=== PATIENT | male | born 1995 | race African-American/Black ===

== ENCOUNTER 2017-12-02 05:21 | Inpatient (IN) | payer OTHER ==
[2017-12-02] MEDS ORDERED: NACL 0.9% 1000 ML 1,000 ML IV ONE ×3 (05:36→11:55)
[2017-12-02 05:50] LABS: Basophils % (Auto) 0.2 % (0.0-1.8); Eosinophils # (Auto) 0.1 K/mm3 (0.0-0.4); Eosinophils % (Auto) 0.7 % (0.0-4.3); Hematocrit 48.4 % (35.5-45.6); Hemoglobin 16.1 gm/dl (11.8-15.2); Lymphocytes # (Auto) 2.9 K/mm3 (1.2-5.4); Lymphocytes % (Auto) 19.2 % (13.4-35.0); Mean Corpuscular HGB Conc 33 % (32-34); Mean Corpuscular Hemoglobin 28 pg (28-32); Mean Corpuscular Volume 83 fl (84-94); Monocytes # (Auto) 0.8 K/mm3 (0.0-0.8); Monocytes % (Auto) 5.2 % (0.0-7.3); Platelet Count 251 K/mm3 (140-440); Red Blood Count 5.81 M/mm3 (3.65-5.03); Red Cell Distribution Width 13.3 % (13.2-15.2)
[2017-12-02 06:10] LABS: Alanine Aminotransferase 15 units/L (7-56); BUN/Creatinine Ratio 18; Blood Urea Nitrogen 16 mg/dL (9-20); Calcium 9.7 mg/dL (8.4-10.2); Hemolysis Index 8
[2017-12-02 07:07] LABS: Bilirubin,Urine NEG (Negative); Blood,Urine NEG (Negative); Color,Urine Yellow (Yellow); Mucus,Urine 3+ /HPF; Protein,Urine <15 mg/dL mg/dL (Negative); Urobilinogen,Urine < 2.0 mg/dL (<2.0)
[2017-12-02] MEDS ORDERED: TORADOL IV ONE (07:13)
--- NOTE | 2017-12-02 08:31 | Cat Scan Report ---
CT ABDOMEN PELVIS WITH CONTRAST: HISTORY: Right sided abdominal pain. COMPARISON: none. TECHNIQUE: Helical CT in 1.25mm intervals following IV contrast. Sagittal and coronal reconstructions. FINDINGS: Lung bases: Normal. Liver: Normal. Biliary system: Normal. Pancreas: Normal. Spleen: Normal. Kidneys/ureters/bladder: Normal. Adrenal glands: Normal. Aorta: Normal. Intestines: Normal. Appendix: The appendix is mildly dilated measuring 9 mm in diameter. Mild mucosal enhancement and mild surrounding fat stranding is identified. No abscess or free air. Pelvic viscera: Normal. Ascites: None. Adenopathy: None. Musculoskeletal: Normal. IMPRESSION: Acute appendicitis. These findings were discussed with Dr. Melchor in the emergency department at 0825 hours.
--- NOTE | 2017-12-02 08:58 | Emergency Department Report ---
ED Abdominal Pain HPI - General Chief Complaint: Abdominal Pain Stated Complaint: STOMACH PAIN Time Seen by Provider: 12/02/17 07:09 Source: patient Mode of arrival: Ambulatory Limitations: No Limitations - History of Present Illness Initial Comments: 22-year-old male with no significant past medical or surgical history presents to the hospital complaining of right lower quadrant abdominal pain and started 3 hours prior to arrival last night. Pain is a constant stabbing pain worse with movement and palpation. Patient denies nausea, vomiting, fever, or diarrhea. Last bowel movement was one day ago. Severity scale (0 -10): 9 - Related Data Allergies Allergy/AdvReac Type Severity Reaction Status Date / Time No Known Allergies Allergy Verified 12/02/17 07:11 ED Review of Systems ROS: Stated complaint: STOMACH PAIN Other details as noted in HPI ED Past Medical Hx - Past Medical History Previous Medical History?: No - Surgical History Past Surgical History?: No - Social History Smoking Status: Never Smoker Substance Use Type: None ED Physical Exam - General Limitations: No Limitations ED Course Vital Signs 12/02/17 12/02/17 12/02/17 05:30 06:43 06:45 Temperature 97.5 F L Pulse Rate 76 Respiratory 20 Rate Blood Pressure 104/49 111/61 Blood Pressure [Left] O2 Sat by Pulse 100 98 100 Oximetry 12/02/17 12/02/17 12/02/17 06:54 07:00 07:15 Temperature 98.4 F Pulse Rate 78 Respiratory 18 Rate Blood Pressure 106/63 106/63 Blood Pressure 111/61 [Left] O2 Sat by Pulse 100 100 100 Oximetry 12/02/17 12/02/17 12/02/17 07:31 07:45 08:20 Temperature Pulse Rate Respiratory 16 Rate Blood Pressure 106/63 106/63 Blood Pressure [Left] O2 Sat by Pulse 99 100 Oximetry 12/02/17 12/02/17 12/02/17 08:29 08:30 08:35 Temperature 99.0 F Pulse Rate 85 Respiratory 16 Rate Blood Pressure 106/63 109/58 Blood Pressure 100/58 [Left] O2 Sat by Pulse 99 99 99 Oximetry - Consultations Consultation #1: 12/02/17 08:[address] smith with [facility], will speak to surgeon and check beds for status 12/02/17 09:36 No beds available, rec pt to be admitted here Consultation #2: 12/02/17 10:04 Dr Galo contacted and informed. request hospitalist to admit. ED Medical Decision Making - Lab Data Result diagrams: 12/02/17 05:35 12/02/17 05:35 Lab Results 12/02/17 12/02/17 12/02/17 Range/Units 05:35 05:35 06:35 WBC 15.2 H (4.5-11.0) K/mm3 RBC 5.81 H (3.65-5.03) M/mm3 Hgb 16.1 H (11.8-15.2) gm/dl Hct 48.4 H (35.5-45.6) % MCV 83 L (84-94) fl MCH 28 (28-32) pg MCHC 33 (32-34) % RDW 13.3 (13.2-15.2) % Plt Count 251 (140-440) K/mm3 Lymph % (Auto) 19.2 (13.4-35.0) % Towns % (Auto) 5.2 (0.0-7.3) % Eos % (Auto) 0.7 (0.0-4.3) % Baso % (Auto) 0.2 (0.0-1.8) % Lymph # 2.9 (1.2-5.4) K/mm3 Towns # 0.8 (0.0-0.8) K/mm3 Eos # 0.1 (0.0-0.4) K/mm3 Baso # 0.0 (0.0-0.1) K/mm3 Seg Neutrophils % 74.7 H (40.0-70.0) % Seg Neutrophils # 11.4 H (1.8-7.7) K/mm3 Sodium 143 (137-145) mmol/L Potassium 3.8 (3.6-5.0) mmol/L Chloride 102.4 (98-107) mmol/L Carbon Dioxide 26 (22-30) mmol/L Anion Gap 18 mmol/L BUN 16 (9-20) mg/dL Creatinine 0.9 (0.8-1.5) mg/dL Estimated GFR > 60 ml/min BUN/Creatinine Ratio 18 % Glucose 106 H (75-100) mg/dL Calcium 9.7 (8.4-10.2) mg/dL Total Bilirubin 0.30 (0.1-1.2) mg/dL AST 16 (5-40) units/L ALT 15 (7-56) units/L Alkaline Phosphatase 128 (35-129) units/L Total Protein 7.9 (6.3-8.2) g/dL Albumin 5.0 (3.9-5) g/dL Albumin/Globulin Ratio 1.7 % Urine Color Yellow (Yellow) Urine Turbidity Clear (Clear) Urine pH 5.0 (5.0-7.0) Ur Specific [place] 1.023 (1.003-1.030) Urine Protein <15 mg/dl (Negative) mg/dL Urine Glucose (UA) Neg (Negative) mg/dL Urine Ketones Neg (Negative) mg/dL Urine Blood Neg (Negative) Urine Nitrite Neg (Negative) Urine Bilirubin Neg (Negative) Urine Urobilinogen < 2.0 (<2.0) mg/dL Ur Leukocyte Esterase Neg (Negative) Urine WBC (Auto) 1.0 (0.0-6.0) /HPF Urine RBC (Auto) 1.0 (0.0-6.0) /HPF U Epithel Cells (Auto) < 1.0 (0-13.0) /HPF Urine Mucus 3+ /HPF - Radiology Data Radiology results: report reviewed CT ABDOMEN PELVIS WITH CONTRAST: HISTORY: Right sided abdominal pain. COMPARISON: none. TECHNIQUE: Helical CT in 1.25mm intervals following IV contrast. Sagittal and coronal reconstructions. FINDINGS: Lung bases: Normal. Liver: Normal. Biliary system: Normal. Pancreas: Normal. Spleen: Normal. Kidneys/ureters/bladder: Normal. Adrenal glands: Normal. Aorta: Normal. Intestines: Normal. Appendix: The appendix is mildly dilated measuring 9 mm in diameter. Mild mucosal enhancement and mild surrounding fat stranding is identified. No abscess or free air. Pelvic viscera: Normal. Ascites: None. Adenopathy: None. Musculoskeletal: Normal. IMPRESSION: Acute appendicitis. - Medical Decision Making Patient has acute appendicitis Patient is a [facility] patient however, no beds available and therefore patient was approved for admission here Case discussed with Dr. Galo general surgeon applications engineer Patient given Zosyn, Toradol, NS, Morphine, zofran and nothing by mouth orders in the ED - Differential Diagnosis appendicitis, constipation, renal colic Critical Care Time: No Critical care attestation.: If time is entered above; I have spent that time in minutes in the direct care of this critically ill patient, excluding procedure time. ED Disposition Clinical Impression: Acute appendicitis Disposition: DC-09 OP ADMIT IP TO THIS HOSP Is pt being admited?: Yes Condition: Stable Time of Disposition: 09:39 (Dr Oconnor contacted at 10:05)
[2017-12-02] MEDS ORDERED: ZOSYN/NS 4.5GM/100ML 4.5 GM/100 ML VIAL IV SCH ×2 (09:00→12:00)
[2017-12-02] MEDS ORDERED: MORPHINE IV ONE (09:45)
[2017-12-02] MEDS ORDERED: ZOFRAN IV ONE (09:46)
[2017-12-02] MEDS ORDERED: MORPHINE IV PRN (10:36)
[2017-12-02] MEDS ORDERED: SODIUM CHLORIDE FLUSH SYRINGE 10 ML IV PRN (10:36)
[2017-12-02] MEDS ORDERED: TYLENOL PO PRN (10:36)
[2017-12-02] MEDS ORDERED: ZOFRAN IV PRN (10:36)
--- NOTE | 2017-12-02 10:38 | History and Physical Report ---
History of Present Illness Date of examination: 12/02/17 Date of admission: 12/02/17 Chief complaint: Appendicitis. History of present illness: Patient 22-year-old male with no significant past medical history no medication presented to the hospital with complaint of sudden onset of right lower quadrant abdominal pain 10/10 in intensity at the onset and improving, that started the night before admission. On arrival to the ED patient was diagnosed with Acute appendicitis. Patient reports nausea but no associated vomiting or diarrhea. . Past History Past Medical History: No medical history Past Surgical History: No surgical history Social history: no significant social history, lives with family, full code Family history: no significant family history Medications and Allergies Allergies Allergy/AdvReac Type Severity Reaction Status Date / Time No Known Allergies Allergy Verified 12/02/17 07:11 Active Meds: Active Medications Piperacillin Sod/Tazobactam Sod (Zosyn/Ns 4.5gm/100ml) 4.5 gm in 100 mls @ 200 mls/hr IV ONCE KRISTAL Last Admin: 12/02/17 10:20 Dose: 200 mls/hr Review of Systems All systems: negative Gastrointestinal: abdominal pain, nausea Exam - Physical Exam Narrative exam: VITAL SIGNS: Reviewed. GENERAL: The patient appeared well nourished and normally developed. Vital signs as documented. HEAD: No signs of head trauma. EYES: Pupils are equal. Extraocular motions intact. EARS: Hearing grossly intact. MOUTH: Oropharynx is normal. NECK: No adenopathy, no JVD. CHEST: Chest with clear breath sounds bilaterally. No wheezes, rales, or rhonchi. CARDIAC: Regular rate and rhythm. S1 and S2, without murmurs, gallops, or rubs. VASCULAR: No Edema. Peripheral pulses normal and equal in all extremities. ABDOMEN: Soft, RUQ tenderness. No sign of distention. No rebound or guarding, and no masses palpated. Bowel Sounds normal. MUSCULOSKELETAL: Good range of motion of all major joints. Extremities without clubbing, cyanosis or edema. NEUROLOGIC EXAM: Alert and oriented x 3. No focal sensory or strength deficits. Speech normal. Follows commands. PSYCHIATRIC: Mood normal. SKIN: No rash or lesions. - Constitutional Vitals: Temp Pulse Resp BP Pulse Ox 99.0 F 85 16 100/58 99 12/02/17 08:35 12/02/17 08:35 12/02/17 08:35 12/02/17 08:35 12/02/17 08:35 Results - Labs CBC & Chem 7: 12/02/17 05:35 12/02/17 05:35 Labs: Laboratory Last Values WBC 15.2 K/mm3 (4.5-11.0) H 12/02/17 05:35 RBC 5.81 M/mm3 (3.65-5.03) H 12/02/17 05:35 Hgb 16.1 gm/dl (11.8-15.2) H 12/02/17 05:35 Hct 48.4 % (35.5-45.6) H 12/02/17 05:35 MCV 83 fl (84-94) L 12/02/17 05:35 MCH 28 pg (28-32) 12/02/17 05:35 MCHC 33 % (32-34) 12/02/17 05:35 RDW 13.3 % (13.2-15.2) 12/02/17 05:35 Plt Count 251 K/mm3 (140-440) 12/02/17 05:35 Lymph % (Auto) 19.2 % (13.4-35.0) 12/02/17 05:35 [place] % (Auto) 5.2 % (0.0-7.3) 12/02/17 05:35 Eos % (Auto) 0.7 % (0.0-4.3) 12/02/17 05:35 Baso % (Auto) 0.2 % (0.0-1.8) 12/02/17 05:35 Lymph # 2.9 K/mm3 (1.2-5.4) 12/02/17 05:35 [place] # 0.8 K/mm3 (0.0-0.8) 12/02/17 05:35 Eos # 0.1 K/mm3 (0.0-0.4) 12/02/17 05:35 Baso # 0.0 K/mm3 (0.0-0.1) 12/02/17 05:35 Seg Neutrophils % 74.7 % (40.0-70.0) H 12/02/17 05:35 Seg Neutrophils # 11.4 K/mm3 (1.8-7.7) H 12/02/17 05:35 Sodium 143 mmol/L (137-145) 12/02/17 05:35 Potassium 3.8 mmol/L (3.6-5.0) 12/02/17 05:35 Chloride 102.4 mmol/L (98-107) 12/02/17 05:35 Carbon Dioxide 26 mmol/L (22-30) 12/02/17 05:35 Anion Gap 18 mmol/L 12/02/17 05:35 BUN 16 mg/dL (9-20) 12/02/17 05:35 Creatinine 0.9 mg/dL (0.8-1.5) 12/02/17 05:35 Estimated GFR > 60 ml/min 12/02/17 05:35 BUN/Creatinine Ratio 18 % 12/02/17 05:35 Glucose 106 mg/dL (75-100) H 12/02/17 05:35 Calcium 9.7 mg/dL (8.4-10.2) 12/02/17 05:35 Total Bilirubin 0.30 mg/dL (0.1-1.2) 12/02/17 05:35 AST 16 units/L (5-40) 12/02/17 05:35 ALT 15 units/L (7-56) 12/02/17 05:35 Alkaline Phosphatase 128 units/L (35-129) 12/02/17 05:35 Total Protein 7.9 g/dL (6.3-8.2) 12/02/17 05:35 Albumin 5.0 g/dL (3.9-5) 12/02/17 05:35 Albumin/Globulin Ratio 1.7 % 12/02/17 05:35 Urine Color Yellow (Yellow) 12/02/17 06:35 Urine Turbidity Clear (Clear) 12/02/17 06:35 Urine pH 5.0 (5.0-7.0) 12/02/17 06:35 Ur Specific [place] 1.023 (1.003-1.030) 12/02/17 06:35 Urine Protein <15 mg/dl mg/dL (Negative) 12/02/17 06:35 Urine Glucose (UA) Neg mg/dL (Negative) 12/02/17 06:35 Urine Ketones Neg mg/dL (Negative) 12/02/17 06:35 Urine Blood Neg (Negative) 12/02/17 06:35 Urine Nitrite Neg (Negative) 12/02/17 06:35 Urine Bilirubin Neg (Negative) 12/02/17 06:35 Urine Urobilinogen < 2.0 mg/dL (<2.0) 12/02/17 06:35 Ur Leukocyte Esterase Neg (Negative) 12/02/17 06:35 Urine WBC (Auto) 1.0 /HPF (0.0-6.0) 12/02/17 06:35 Urine RBC (Auto) 1.0 /HPF (0.0-6.0) 12/02/17 06:35 U Epithel Cells (Auto) < 1.0 /HPF (0-13.0) 12/02/17 06:35 Urine Mucus 3+ /HPF 12/02/17 06:35 - Imaging and Cardiology CT scan - abdomen: image reviewed (acute appendicitis) Assessment and Plan Assessment and plan: Patient 22-year-old male with no significant past medical history no medication presented to the hospital with complaint of sudden onset of right lower quadrant abdominal pain 10/10 in intensity at the onset and improving, that started the night before admission. On arrival to the ED patient was diagnosed with Acute appendicitis. Patient reports nausea but no associated vomiting or diarrhea. Acute appendicitis Abdominal peritoneal irritation secondary to appendicitis SIRS due to non infectious etiology with organ dysfunction Leukocytosis secondary to inflammation Plan Admit to surgical unit Surgery already consulted Plan for appendectomy Pain control Supportive care Plan discussed with patient and family. dvt/gi Prophy Advance Directives: Yes Plan of care discussed with patient/family: Yes
--- NOTE | 2017-12-02 12:04 | Consultation ---
History of Present Illness Consult date: 12/02/17 Reason for consult: abdominal pain Requesting physician: KENNETH CROUCH Chief complaint: RLQ abdominal pain - History of present illness History of present illness: 22yo healthy male presents with acute onset of RLQ abdominal pain since last night. Never had pain like this. No F/C/N/V. No Diarrhea. Pain has gotten worse. Past History Past Medical History: No medical history Past Surgical History: No surgical history Social history: single. denies: smoking, alcohol abuse Family history: no significant family history Medications and Allergies Allergies Allergy/AdvReac Type Severity Reaction Status Date / Time No Known Allergies Allergy Verified 12/02/17 07:11 Active Meds: Active Medications Acetaminophen (Tylenol) 650 mg PO Q4H PRN PRN Reason: Pain MILD(1-3)/Fever >100.5/MARTE Piperacillin Sod/Tazobactam Sod (Zosyn/Ns 4.5gm/100ml) 4.5 gm in 100 mls @ 200 mls/hr IV ONCE KRISTAL Last Admin: 12/02/17 10:20 Dose: 200 mls/hr Dextrose/Sodium Chloride (D5/0.45ns) 1,000 mls @ 125 mls/hr IV DIRECT KRISTAL Sodium Chloride (Nacl 0.9% 1000 Ml) 1,000 mls @ 999 mls/hr IV BOLUS ONE Stop: 12/02/17 12:55 Piperacillin Sod/Tazobactam Sod (Zosyn/Ns 4.5gm/100ml) 4.5 gm in 100 mls @ 200 mls/hr IV PREOP KRISTAL; Protocol Morphine Sulfate (Morphine) 2 mg IV Q4H PRN PRN Reason: Pain, Moderate (4-6) Ondansetron HCl (Zofran) 4 mg IV Q8H PRN PRN Reason: Nausea And Vomiting Sodium Chloride (Sodium Chloride Flush Syringe 10 Ml) 10 ml IV BID KRISTAL Sodium Chloride (Sodium Chloride Flush Syringe 10 Ml) 10 ml IV PRN PRN PRN Reason: LINE FLUSH Review of Systems - Constitutional no fever, no chills, no sweats, no chronic pain - Cardiovascular no chest pain, no palpitations, no lightheadedness, no shortness of breath - Respiratory no cough, no shortness of breath - Gastrointestinal abdominal pain, dyspepsia/bloating, no nausea, no vomiting, no diarrhea, no constipation, no change in bowel habits, no hematemesis, no BRBPR, no melena, no hematochezia, no indigestion - Genitourinary no dysuria - Muskuloskeletal no low back pain - Integumentary no rash, no sores, no wounds - Neurological no weakness, no headaches Exam Vital Signs Temp Pulse Resp BP Pulse Ox 97.5 F L 76 20 104/49 100 12/02/17 05:30 12/02/17 05:30 12/02/17 05:30 12/02/17 05:30 12/02/17 05:30 - General physical appearance Positive: well developed, well nourished, no distress, no pain, other (healthy appearing young man) - Eyes Positive: normal occular movement - Respiratory Positive: normal expansion, normal respiratory effort, clear to auscultation - Cardiovascular Rhythm: regular - Abdomen Abdomen: Present: soft, tender (focally in RLQ. No Rovsing's sign. No pelvic shake tenderness. ), bowel sounds hypoactive, distended (mild). Absent: guarding, rigid, wound - Integumentary no rash, no growths, no abnormal pigmentation - Neurologic Neurologic: alert and oriented to time, place and person, motor strength and sensation are grossly intact - Psychiatric Psychiatric: appropriate mood/affect, intact judgment & insight Results - Labs 12/02/17 05:35 12/02/17 05:35 Abnormal lab results 12/02/17 12/02/17 Range/Units 05:35 05:35 WBC 15.2 H (4.5-11.0) K/mm3 RBC 5.81 H (3.65-5.03) M/mm3 Hgb 16.1 H (11.8-15.2) gm/dl Hct 48.4 H (35.5-45.6) % MCV 83 L (84-94) fl Seg Neutrophils % 74.7 H (40.0-70.0) % Seg Neutrophils # 11.4 H (1.8-7.7) K/mm3 Glucose 106 H (75-100) mg/dL Diabetes panel 12/02/17 Range/Units 05:35 Sodium 143 (137-145) mmol/L Potassium 3.8 (3.6-5.0) mmol/L Chloride 102.4 (98-107) mmol/L Carbon Dioxide 26 (22-30) mmol/L BUN 16 (9-20) mg/dL Creatinine 0.9 (0.8-1.5) mg/dL Glucose 106 H (75-100) mg/dL Calcium 9.7 (8.4-10.2) mg/dL AST 16 (5-40) units/L ALT 15 (7-56) units/L Alkaline Phosphatase 128 (35-129) units/L Total Protein 7.9 (6.3-8.2) g/dL Albumin 5.0 (3.9-5) g/dL Calcium panel 12/02/17 Range/Units 05:35 Calcium 9.7 (8.4-10.2) mg/dL Albumin 5.0 (3.9-5) g/dL Pituitary panel 12/02/17 Range/Units 05:35 Sodium 143 (137-145) mmol/L Potassium 3.8 (3.6-5.0) mmol/L Chloride 102.4 (98-107) mmol/L Carbon Dioxide 26 (22-30) mmol/L BUN 16 (9-20) mg/dL Creatinine 0.9 (0.8-1.5) mg/dL Glucose 106 H (75-100) mg/dL Calcium 9.7 (8.4-10.2) mg/dL Adrenal panel 12/02/17 Range/Units 05:35 Sodium 143 (137-145) mmol/L Potassium 3.8 (3.6-5.0) mmol/L Chloride 102.4 (98-107) mmol/L Carbon Dioxide 26 (22-30) mmol/L BUN 16 (9-20) mg/dL Creatinine 0.9 (0.8-1.5) mg/dL Glucose 106 H (75-100) mg/dL Calcium 9.7 (8.4-10.2) mg/dL Total Bilirubin 0.30 (0.1-1.2) mg/dL AST 16 (5-40) units/L ALT 15 (7-56) units/L Alkaline Phosphatase 128 (35-129) units/L Total Protein 7.9 (6.3-8.2) g/dL Albumin 5.0 (3.9-5) g/dL - Imaging CT scan - abdomen: report reviewed, image reviewed CT scan - pelvis: report reviewed, image reviewed Assessment and Plan - Patient Problems (1) Acute appendicitis Current Visit: Yes Status: Acute Qualifiers: Acute appendicitis type: with localized peritonitis Qualified Code(s): K35.3 - Acute appendicitis with localized peritonitis Plan to address problem: Pt stable. Appears to have hx/PE/labs/RAD studies consistent with acute appendicitis. Pt unable to transfer to [facility] due to lack of beds. Pt recommended to have lap appy. Procedure, risks, benefits, alternatives (Abx only ) discussed with patient. Pt wishes to have surgery. all questions answered. Consent obtained. To OR today for lap appy. Time=45min
[2017-12-02] MEDS ORDERED: TORADOL IV PRN (12:20)
[2017-12-02] MEDS ORDERED: PERCOCET 5/325 PO PRN (12:20)
[2017-12-02] MEDS ORDERED: DILAUDID IV PRN (12:20)
--- NOTE | 2017-12-02 12:23 | Anesthesia Day of Surgery ---
Anesthesia Day of Surgery - Day of Surgery Patient Examined: Yes Patient H&P Reviewed: Yes Patient is NPO: Yes
--- NOTE | 2017-12-02 12:23 | Anesthesia Consultation ---
Anesthesia Consult and Med Hx Date of service: 12/02/17 - Airway Anesthetic Teeth Evaluation: Good ROM Head & Neck: Adequate Mental/Hyoid Distance: Adequate Mallampati Class: Class II Intubation Access Assessment: Probably Good - Pulmonary Exam CTA: Yes - Cardiac Exam Cardiac Exam: RRR - Pre-Operative Health Status ASA Pre-Surgery Classification: ASA1 Proposed Anesthetic Plan: General - Pulmonary Hx Smoking: No - Cardiovascular System Hx Hypertension: No - Central Nervous System Hx Back Pain: No - Gastrointestinal Hx Gastroesophageal Reflux Disease: No - Endocrine Hx Renal Disease: No
[2017-12-02] MEDS ORDERED: DILAUDID ONE (12:35)
[2017-12-02] MEDS ORDERED: ZEMURON IV ONE (12:35)
[2017-12-02] MEDS ORDERED: DIPRIVAN 10 MG/ML IV ONE (12:35)
[2017-12-02] MEDS ORDERED: XYLOCAINE MPF 2% ONE (12:35)
[2017-12-02] MEDS ORDERED: XYLOCAINE 1% 20 mL ONE (12:39)
[2017-12-02] MEDS ORDERED: MARCAINE 0.25% INFILTRATI ONE (12:40)
[2017-12-02] MEDS ORDERED: MARCAINE 0.5% 30 ML INFILTRATI ONE (12:46)
[2017-12-02] MEDS ORDERED: VERSED IV NR (13:00)
[2017-12-02] MEDS ORDERED: PEPCID IV NR (13:00)
[2017-12-02] MEDS ORDERED: DECADRON ONE (13:18)
[2017-12-02] MEDS ORDERED: ROBINUL ONE (13:18)
[2017-12-02] MEDS ORDERED: ZOFRAN ONE (13:18)
[2017-12-02] MEDS ORDERED: BLOXIVERZ ONE (13:18)
[2017-12-02] MEDS ORDERED: XYLOCAINE 1% 20 mL INFILTRATI ONE ×2 (13:24)
[2017-12-02] MEDS ORDERED: NACL 0.9% IR ONE (13:24)
[2017-12-02] MEDS ORDERED: MARCAINE 0.5% INFILTRATI ONE (13:24)
[2017-12-02] MEDS ORDERED: TORADOL ONE (13:54)
[2017-12-02] MEDS ORDERED: NORCO 5/325 PO PRN (14:10)
--- NOTE | 2017-12-02 14:12 | Post Operative Note ---
Date of procedure: 12/02/17 (Dictation:[id number]) Pre-op diagnosis: acute appendicitis Post-op diagnosis: same Findings: inflammed retrocecal appendix Procedure: lap appy Anesthesia: GETA Surgeon: ALYSIA MARKS Estimated blood loss: minimal Pathology: list (appendix) Specimen disposition: to lab Condition: stable Disposition: PACU
[2017-12-02] MEDS: TORADOL IV SCH (18:02)
[2017-12-02] MEDS: D5/0.45NS 1,000 ML IV SCH (18:03)
[2017-12-02] MEDS ORDERED: SODIUM CHLORIDE FLUSH SYRINGE 10 ML IV SCH (22:00)
--- NOTE | 2017-12-02 22:23 | Operative Report ---
PREOPERATIVE DIAGNOSIS: Acute appendicitis. POSTOPERATIVE DIAGNOSIS: Acute appendicitis. PROCEDURE: Laparoscopic appendectomy. ATTENDING PHYSICIAN: Tara Galo MD ANESTHESIA: General. ESTIMATED BLOOD LOSS: Minimal. FLUIDS: 1500 mL. FINDINGS: Retrocecal appendix that was acutely inflamed. No evidence of perforation, no purulent fluid in the surrounding area. Rest of the abdomen appeared normal. SPECIMENS: Appendix. DRAINS: None. COMPLICATIONS: None. DISPOSITION: Stable, transferred to Recovery Room. INDICATIONS: This is a 22-year-old male who presented with less than 1-day history of acute onset of right lower quadrant pain. CT scan was strongly suggestive of acute appendicitis. The patient was assessed to be in need for surgery. Procedure, risks, benefits and alternatives were explained to the patient. Risks included but were not limited to infection, bleeding, pain, injury to surrounding structures, possible need for open surgery, possible need for further procedures in the future. The patient understood and consented. OPERATIVE NOTE: The patient was brought to the operating room and placed on the table in supine position. After adequate anesthesia was established, the patient was prepped and draped in usual sterile fashion. Antibiotics had just been given in the Emergency Room. SCDs were in place. Time out was performed. I began by anesthetizing an area 3 fingerbreadths below the left costal margin and making a small incision. Veress needle was inserted, we insufflated the abdomen on the first attempt. I then placed a 12 mm port in the left lower quadrant using the Optiview technique. I entered the peritoneal cavity safely. We examined where the Veress needle had been inserted. There was no injury to the underlying structures there or beneath where the port was inserted. We then placed a 5 mm port in the suprapubic area in the midline. We then examined the area of the cecum. It did appear that the appendix was probably in the retrocecal position, which would require mobilization of the cecum. I placed another 5 mm port at the umbilical area and then mobilized the cecum with the LigaSure device. Once I had enough of the cecum mobilized, I was able to identify the appendix. I dissected out the base. Using a 45 mm blue load, I divided the base. Using the LigaSure device, I then divided the mesoappendix, taking care to be mindful of the adjacent bowel. We stayed as close to the appendix as possible. We examined the cecum. Once we removed the appendix left-hand side, it appeared as though we did not injure the cecum at all. We had excellent hemostasis. There was no evidence of any obvious bowel injury. We then placed the specimen in the EndoCatch bag. I examined the pelvis and the surrounding area again I saw no evidence of any concerning findings. There was no purulent fluid. There was no active bleeding and again I looked at the cecum. It appeared to be completely intact without any signs of injury. We removed the EndoCatch bag from the left lower quadrant 12 mm port site. I had to stretch out the fascia as the fascia was very strong in this young man. Then, we were able to remove the specimen. Using the Eusebio-Miri fascial closure device, we closed the fascia with an 0 Vicryl stitch. I then reinforced that by closing the superficial fascia with another 0 Vicryl stitch. We irrigated out the wound and then we closed all the skin sites with 4-0 Monocryl subcuticular stitches. Please note at this point, I had already removed the two 5 mm ports and desufflated the abdomen completely. Additional local was injected into the incision sites. Skin was cleaned and dried. Dermabond was placed. The patient tolerated the procedure well. There were no complications. All counts were correct at the end of the case. JOB# [id number] MOON/VERNELL
[2017-12-02] MEDS: ZOSYN/NS 4.5GM/100ML 4.5 GM/100 ML VIAL IV SCH (22:44)
[2017-12-03] MEDS: D5/0.45NS 1,000 ML IV SCH (03:21)
[2017-12-03] MEDS: TORADOL IV SCH ×2 (03:25→06:51)
[2017-12-03 04:43] LABS: Basophils % (Auto) 0.1 % (0.0-1.8); Hematocrit 38.1 % (35.5-45.6); Hemoglobin 12.8 gm/dl (11.8-15.2); Lymphocytes # (Auto) 1.1 K/mm3 (1.2-5.4); Lymphocytes % (Auto) 12.2 % (13.4-35.0); Mean Corpuscular HGB Conc 34 % (32-34); Mean Corpuscular Hemoglobin 28 pg (28-32); Mean Corpuscular Volume 84 fl (84-94); Monocytes # (Auto) 0.8 K/mm3 (0.0-0.8); Platelet Count 193 K/mm3 (140-440); Red Blood Count 4.54 M/mm3 (3.65-5.03); Red Cell Distribution Width 13.3 % (13.2-15.2)
[2017-12-03] MEDS: ZOSYN/NS 4.5GM/100ML 4.5 GM/100 ML VIAL IV SCH (05:09)
[2017-12-03 05:10] LABS: BUN/Creatinine Ratio 9; Blood Urea Nitrogen 7 mg/dL (9-20); Calcium 8.8 mg/dL (8.4-10.2); Hemolysis Index 0
[2017-12-03 07:55] VITALS: BP 97/56
--- NOTE | 2017-12-03 09:11 | Progress Note ---
Assessment and Plan - Patient Problems (1) Acute appendicitis Current Visit: Yes Status: Acute Qualifiers: Acute appendicitis type: with localized peritonitis Qualified Code(s): K35.3 - Acute appendicitis with localized peritonitis Plan to address problem: Pt stable. s/p lap appy - 12/02/17 - POD#1. Pt doing well. Ok to d/c home 1) Advance diet as tolerated. 2) May shower this evening. Pat dry wounds 3) Ice pack to wounds 4-5x/day for 10min each time 4) walk daily 5) f/u 2 weeks. Please call with questions. Subjective Date of service: 12/03/17 Patient Reports: Positive: no new complaints, feels better, tolerating liquids well, no bowel movement. Negative: nausea, vomiting Objective Vital Signs - 12hr 12/02/17 12/02/17 12/03/17 22:00 23:53 03:25 Temperature 98.4 F Pulse Rate 69 Respiratory 18 17 Rate Respiratory 17 Rate [Right Abdomen] Blood Pressure 104/55 Blood Pressure [Left] O2 Sat by Pulse 98 98 Oximetry 12/03/17 12/03/17 12/03/17 03:53 04:59 05:29 Temperature 98.6 F Pulse Rate 64 Respiratory 18 17 17 Rate Respiratory Rate [Right Abdomen] Blood Pressure 96/48 Blood Pressure [Left] O2 Sat by Pulse 96 Oximetry 12/03/17 07:30 Temperature 98.3 F Pulse Rate 61 Respiratory 20 Rate Respiratory Rate [Right Abdomen] Blood Pressure Blood Pressure 97/56 [Left] O2 Sat by Pulse 96 Oximetry - General physical appearance no distress, no pain, other (looks well) - Eyes normal occular movement - Respiratory normal expansion, normal respiratory effort - Abdomen soft, tender (appropriate incisional tenderness), not distended, not guarding, not rigid, surgical scars (C/D/i) - Psychiatric oriented to time, oriented to person, oriented to place, speech is normal, memory intact - Labs 12/03/17 04:17 12/03/17 04:18 Diabetes panel 12/03/17 Range/Units 04:18 Sodium 142 (137-145) mmol/L Potassium 4.0 (3.6-5.0) mmol/L Chloride 107.4 H (98-107) mmol/L Carbon Dioxide 25 (22-30) mmol/L BUN 7 L (9-20) mg/dL Creatinine 0.8 (0.8-1.5) mg/dL Glucose 134 H (75-100) mg/dL Calcium 8.8 (8.4-10.2) mg/dL Calcium panel 12/03/17 Range/Units 04:18 Calcium 8.8 (8.4-10.2) mg/dL Pituitary panel 12/03/17 Range/Units 04:18 Sodium 142 (137-145) mmol/L Potassium 4.0 (3.6-5.0) mmol/L Chloride 107.4 H (98-107) mmol/L Carbon Dioxide 25 (22-30) mmol/L BUN 7 L (9-20) mg/dL Creatinine 0.8 (0.8-1.5) mg/dL Glucose 134 H (75-100) mg/dL Calcium 8.8 (8.4-10.2) mg/dL Adrenal panel 12/03/17 Range/Units 04:18 Sodium 142 (137-145) mmol/L Potassium 4.0 (3.6-5.0) mmol/L Chloride 107.4 H (98-107) mmol/L Carbon Dioxide 25 (22-30) mmol/L BUN 7 L (9-20) mg/dL Creatinine 0.8 (0.8-1.5) mg/dL Glucose 134 H (75-100) mg/dL Calcium 8.8 (8.4-10.2) mg/dL
--- NOTE | 2017-12-03 10:21 | Discharge Summary ---
Providers - Providers Date of Admission: 12/02/17 10:05 Attending physician: GUADALUPE GILLIS MD 12/02/17 08:30 Consult to Physician [CONS] Urgent Comment: Consulting Provider: ALYSIA MAKRS Physician Instructions: Reason For Exam: early appy Primary care physician: BORDEREAU CLERK Hospitalization Condition: Stable Hospital course: Patient 22-year-old male with no significant past medical history no medication presented to the hospital with complaint of sudden onset of right lower quadrant abdominal pain 10/10 in intensity at the onset and improving, that started the night before admission. On arrival to the ED patient was diagnosed with Acute appendicitis. Patient reports nausea but no associated vomiting or diarrhea. Acute appendicitis Abdominal peritoneal irritation secondary to appendicitis SIRS due to non infectious etiology with organ dysfunction Leukocytosis secondary to inflammation Plan Admit to surgical unit Surgery already consulted Plan for appendectomy Pain control Supportive care Plan discussed with patient and family. dvt/gi Prophy Plan to address problem: Pt stable. s/p lap appy - 12/02/17 - POD#1. Pt doing well. Ok to d/c home 1) Advance diet as tolerated. 2) May shower this evening. Pat dry wounds 3) Ice pack to wounds 4-5x/day for 10min each time 4) walk daily 5) f/u 2 weeks. Disposition: - TO HOME OR SELFCARE Core Measure Documentation - Palliative Care Palliative Care/ Comfort Measures: Not Applicable - Core Measures Any of the following diagnoses?: none - VTE Discharge Requirements Deep Vein Thrombosis/Pulmonary Embolism Present on Admission: No Exam - Physical Exam Narrative exam: VITAL SIGNS: Reviewed. GENERAL: The patient appeared well nourished and normally developed. Vital signs as documented. HEAD: No signs of head trauma. EYES: Pupils are equal. Extraocular motions intact. EARS: Hearing grossly intact. MOUTH: Oropharynx is normal. NECK: No adenopathy, no JVD. CHEST: Chest with clear breath sounds bilaterally. No wheezes, rales, or rhonchi. CARDIAC: Regular rate and rhythm. S1 and S2, without murmurs, gallops, or rubs. VASCULAR: No Edema. Peripheral pulses normal and equal in all extremities. ABDOMEN: Soft, RUQ tenderness. No sign of distention. No rebound or guarding, and no masses palpated. Bowel Sounds normal. MUSCULOSKELETAL: Good range of motion of all major joints. Extremities without clubbing, cyanosis or edema. NEUROLOGIC EXAM: Alert and oriented x 3. No focal sensory or strength deficits. Speech normal. Follows commands. PSYCHIATRIC: Mood normal. SKIN: No rash or lesions. - Constitutional Vitals: Temp Pulse Resp BP Pulse Ox 98.3 F 61 20 97/56 96 12/03/17 07:30 12/03/17 07:30 12/03/17 07:30 12/03/17 07:30 12/03/17 07:30 Plan Activity: advance as tolerated, fall precautions Diet: low fat Special Instructions: other (AMBULATE DAILYT) Follow up with: PRIMARY CAREMD [Primary Care Provider] - 3-5 Days ALYSIA MARKS MD [Staff Physician] - 14 Days Prescriptions: HYDROcodone/APAP 5-325 [Pendroy 5-325 mg TAB] 1 each PO Q6H PRN #10 tablet PRN Reason: Pain, Moderate (4-6)
== END 2017-12-03 12:33 | disposition home or self-care (01) | DRG 338 ==
LOC: ED 05:21 → 3A 10:05 → 3B-SURG 12:52
PROVIDERS: ADMIT Internal Medicine; ATTEND Internal Medicine
PROC: 0DTJ4ZZ Resection of Appendix, Percutaneous Endoscopic Approach (ICD-10-PCS; principal; 2017-12-02)
DX: K35.3 Acute appendicitis with localized peritonitis (principal); R65.11 Systemic inflammatory response syndrome (SIRS) of non-infectious origin with acute organ dysfunction
CPT/HCPCS: 36415; 74177; 80048; 80053; 81001; 85025; 88304; 96361; 96365; 96375; J1100; J1170; J1885; J2250; J2270; J2405; J2543; J2704; J2710; J7030; Q9967